=== PATIENT | female | born 1970 | race Caucasian/White ===

== ENCOUNTER 2016-07-07 16:41 | Emergency (ER) | payer OTHER ==
[2016-07-07] MEDS ORDERED: TYLENOL 325 MG PO ONE (17:15)
[2016-07-07] MEDS ORDERED: PROVENTIL 2.5 MG/3 ML NEB IH ONE ×2 (17:15→17:23)
[2016-07-07] MEDS ORDERED: TYLENOL 325 MG ONE (17:22)
--- NOTE | 2016-07-07 17:22 | ERPHSYRPT ---
- History of Present Illness Time Seen by Provider: 07/07/16 17:02 Source: patient, family Patient Subjective Stated Complaint: pt co cough, fever,yellow drianiage from nose, wheezing,earache Triage Nursing Assessment: pt alert and in no distress, resp easy, walked in, skin w/d. has stuffy nose and dry cough Physician History: CC: cough Hx: 45 y/o patient on disabililty for COPD. She sees Dr Barriga. She has 2 day hx of fever, chills, cough, sore throat, congestion, aches, myalgias. She has been using nebs. Symptoms moderate. Timing/Duration: day(s) (2) Allergies/Adverse Reactions: atropine sulfate [From ] Allergy (Verified 07/07/16 17:08) hyoscyamine sulfate [From ] Allergy (Verified 07/07/16 17:08) phenobarbital [From ] Allergy (Verified 07/07/16 17:08) scopolamine hydrobromide [From ] Allergy (Verified 07/07/16 17:08) shellfish derived Allergy (Verified 07/07/16 17:08) sulfamethoxazole [From Bactrim] Allergy (Verified 07/07/16 17:08) sumatriptan [From Imitrex] Allergy (Verified 07/07/16 17:08) sumatriptan succinate [From Imitrex] Allergy (Verified 07/07/16 17:08) trimethoprim [From Bactrim] Allergy (Verified 07/07/16 17:08) Home Medications: Albuterol 2.5 mg/0.5 ml [PROVENTIL Solution 2.5 MG/0.5 ML] 2.5 mg IH .PRN 06/11/16 [History] Albuterol 8 gm Mdi Hfa [Ventolin Hfa MDI] 0 gm IH .PRN 06/11/16 [History] Fluticasone/Salmeterol [Advair 250-50 Diskus] 1 each IH BID 06/11/16 [History] Ranitidine HCl [Zantac] 300 mg PO DAILY 06/11/16 [History] Ropinirole HCl [Requip] 1 mg PO HS 06/11/16 [History] Tiotropium [place] Inhaler [Spiriva 18 Mcg/Cap Inhaler] 1 ea IH DAILY 04/17 [History] Hx Influenza Vaccination/Date Given: Yes Hx Pneumococcal Vaccination/Date Given: Yes Immunizations Up to Date: Yes - Review of Systems Constitutional: Fever, Chills, Malaise Eyes: No Symptoms Ears, Nose, & Throat: Nose Congestion, Throat Pain Respiratory: Cough, Wheezing Abdominal/Gastrointestinal: Vomiting (dry heave with cough), No Diarrhea Genitourinary Symptoms: No Dysuria Skin: No Rash All Other Systems: Reviewed and Negative - Past Medical History Pertinent Past Medical History: Yes Neurological History: Migraines, Other ENT History: No Pertinent History Cardiac History: High Cholesterol, Other Respiratory History: Asthma, COPD Endocrine Medical History: No Pertinent History Musculoskeletal History: Degenerative Disk Disease, Osteoporosis, Other History: Other Psycho-Social History: Bipolar, Depression Female Reproductive Disorders: Other Other Medical History: , shingles 01/2016, neurosyncope, hysterectomy - Past Surgical History Past Surgical History: Yes Neuro Surgical History: Other Cardiac: No Pertinent History Respiratory: No Pertinent History Gastrointestinal: No Pertinent History Genitourinary: Other Musculoskeletal: Other Female Surgical History: Hysterectomy, Tubal Ligation Other Surgical History: 2 NOSE SURG,KNEE SURG, back stimulator, bladder stimulator for neurogenic bladder and removal of both - Social History Smoking Status: Former smoker How long have you smoked: 29 years Exposure to second hand smoke: Yes Drug Use: none Patient Lives Alone: No - Female History Hx Last Menstrual Period: hyster - Nursing Vital Signs Nursing Vital Signs: Initial Vital Signs Temperature 99.4 F Temperature Source Oral Pulse Rate 103 Respiratory Rate 16 Blood Pressure [Left Arm] 118/79 Pain Intensity 8 - Physical Exam General Appearance: alert Eye Exam: PERRL/EOMI Ears, Nose, Throat Exam: normal ENT inspection, dry mucous membranes Neck Exam: normal inspection, supple Respiratory Exam: wheezing (scattered), No respiratory distress Cardiovascular Exam: regular rate/rhythm, No murmur Gastrointestinal/Abdomen Exam: soft, No tenderness, No distention Back Exam: normal inspection Extremity Exam: normal inspection, normal range of motion, No calf tenderness, No pedal edema Neurologic Exam: alert, oriented x 3, cooperative, sensation nml, No motor deficits Skin Exam: warm, dry, No rash SpO2 Interpretation: normal SpO2: 99 Oxygen Delivery: Room Air - Course Nursing assessment & vital signs reviewed: Yes Ordered Tests: Active Orders 24 hr Category Date Time Status Accucheck STAT Care 07/07/16 17:15 Active PO Popsicle STAT Care 07/07/16 17:16 Active Respiratory Nebulizer STAT RT 07/07/16 17:15 Active - Progress Progress Note: 07/07/16 17:19 This is viral syndrome, likely influenza, with COPD exacerbation. Will treat with nebs, prednisone, doxy, and tussionex. Counseled pt/family regarding: diagnosis, need for follow-up - Departure Time of Disposition: 17:19 Departure Disposition: Home Clinical Impression: COPD exacerbation, flu like syndrome Condition: Stable Critical Care Time: No Referrals: BARON BARRIGA [Primary Care Provider] - Instructions: Chronic Obstructive Pulmonary Disease, Influenza -- Adult Additional Instructions: UPPER RESPIRATORY INFECTIONS 1. The signs and symptoms of a cold may last up to 10 days. These illnesses are due to viruses which are not treatable with antibiotics. 2. The following suggestions can aid in recovery and to minimize symptoms: A. Increase fluid intake. B. Acetaminophen or Ibuprofen as directed. C. Avoid smoking environments as this will increase the risk of developing pneumonia. D. For children, may use a cool mist vaporizer in the child's room. 3. Contact your Family Physician if you note: A. Persisten fever >103 for more than 3 days B. Breathing difficulty C. Productive cough of yellow/green sputum D. Illness greater than 7 days E. Persistent vomiting F. Stiff neck Rx prednisone. Rx doxycycline. Use your nebs as already prescribed. Follow up with Dr Barriga this week. Push oral fluids. Return for problems or concerns. Prescriptions: Doxycycline Hyclate 100 mg [Vibramycin 100 MG] 1 tab PO BID #20 tab Hydrocod Psx/Chlor-Jesus [Tussionex Pennkinetic Susp] 5 ml PO BID PRN #50 ml Prednisone 20 mg [Deltasone 20 mg] 2 tab PO DAILY #10 tablet
[2016-07-07 18:00] VITALS: BP 122/73; PULSE 100; O2SAT 97
== END 2016-07-07 17:59 | disposition home or self-care (01) ==
LOC: ED 16:41
DX: J44.1 Chronic obstructive pulmonary disease with (acute) exacerbation (principal); J11.1 Influenza due to unidentified influenza virus with other respiratory manifestations
CPT/HCPCS: 82962; 94640; 99283; 99284

== ENCOUNTER 2017-01-21 17:40 | Emergency (ER) | payer OTHER ==
[2017-01-21] MEDS ORDERED: DUONEB 0.5-3 MG/3 ml Neb IH ONE ×2 (17:55→18:26)
[2017-01-21] MEDS ORDERED: DELTASONE 20 MG PO ONE (17:56)
--- NOTE | 2017-01-21 17:59 | ERPHSYRPT ---
- History of Present Illness Time Seen by Provider: 01/21/17 17:57 Source: patient Exam Limitations: no limitations Patient Subjective Stated Complaint: PT REPORTS BEING DX WITH STREP THROAT YESTERDAY-REPORTS STARTING ANTIBIOTIC YESTERDAY MORNING-STATES THAT SHE THEN BEGAN HAVING DIARRHEA LAST NIGHT-STATES SHE IS UNABLE TO EAT OR DRINK WITHOUT PAIN-STATES SHE HURTS ALL OVER-HURTS WITH DEEP BREATHING-HAS AN MARISSA WITH DR Kirit SOSA TOMORROW MORNING ET THAT HE WANTED A CHEST X-RAY BUT DID NOT CALL THE ORDER IN Triage Nursing Assessment: PT PALE WARM ET DRY-WHEEZES NOTED-RESP NONLABORED- SPEAKING IN COMPLETE SENTECES-SLIGHT HOARSENESS NOTED-REDNESS NOTED TO THROAT Physician History: 46 y/o female with history of COPD comes to the ER with complaints of weakness, shortness of breath, cough, wheezing and chest pressure that started yesterday. Pt also admits to subjective fever and chills. Pt was just started on PCN for strep throat. Timing/Duration: yesterday Cough Quality/Degree: moderate Possible Cause: occasional episodes Modifying Factors: Improves With: albuterol inhaler Associated Symptoms: fever, chills, cough Allergies/Adverse Reactions: atropine sulfate [From ] Allergy (Verified 01/21/17 17:53) hyoscyamine sulfate [From ] Allergy (Verified 01/21/17 17:53) phenobarbital [From ] Allergy (Verified 01/21/17 17:53) scopolamine hydrobromide [From ] Allergy (Verified 01/21/17 17:53) shellfish derived Allergy (Verified 01/21/17 17:53) sulfamethoxazole [From Bactrim] Allergy (Verified 01/21/17 17:53) sumatriptan [From Imitrex] Allergy (Verified 01/21/17 17:53) sumatriptan succinate [From Imitrex] Allergy (Verified 01/21/17 17:53) trimethoprim [From Bactrim] Allergy (Verified 01/21/17 17:53) Home Medications: Albuterol 2.5 mg/0.5 ml [PROVENTIL Solution 2.5 MG/0.5 ML] 2.5 mg IH .PRN 06/11/16 [History] Albuterol 8 gm Mdi Hfa [Ventolin Hfa MDI] 0 gm IH .PRN 06/11/16 [History] Ranitidine HCl [Zantac] 300 mg PO DAILY 06/11/16 [History] Ropinirole HCl [Requip] 1 mg PO HS 06/11/16 [History] Tiotropium [place] Inhaler [Spiriva 18 Mcg/Cap Inhaler] 1 ea IH DAILY 04/17 [History] Venlafaxine HCl [Effexor] 150 mg PO DAILY 01/21/17 [History] Hx Tetanus, Diphtheria Vaccination/Date Given: No Hx Influenza Vaccination/Date Given: Yes Hx Pneumococcal Vaccination/Date Given: Yes Immunizations Up to Date: Yes - Review of Systems Constitutional: No Fever, No Chills Eyes: No Symptoms Ears, Nose, & Throat: No Symptoms, Throat Pain Respiratory: Cough, Dyspnea, Dyspnea on Exertion (CONDE), Wheezing Cardiac: No Chest Pain, No Edema, No Syncope Abdominal/Gastrointestinal: No Abdominal Pain, No Nausea, No Vomiting, No Diarrhea Genitourinary Symptoms: No Dysuria Musculoskeletal: No Back Pain, No Neck Pain Skin: No Rash Neurological: No Dizziness, No Focal Weakness, No Sensory Changes Psychological: No Symptoms Endocrine: No Symptoms All Other Systems: Reviewed and Negative - Past Medical History Pertinent Past Medical History: Yes Neurological History: Migraines, Other ENT History: No Pertinent History Cardiac History: High Cholesterol, Other Respiratory History: Asthma, COPD Endocrine Medical History: No Pertinent History Musculoskeletal History: Degenerative Disk Disease, Osteoporosis, Other History: Other Psycho-Social History: Bipolar, Depression Female Reproductive Disorders: Other Other Medical History: , shingles 01/2016, neurosyncope, hysterectomy - Past Surgical History Past Surgical History: Yes Neuro Surgical History: Other Cardiac: No Pertinent History Respiratory: No Pertinent History Gastrointestinal: No Pertinent History Genitourinary: Other Musculoskeletal: Other Female Surgical History: Hysterectomy, Tubal Ligation Other Surgical History: 2 NOSE SURG,KNEE SURG, back stimulator, bladder stimulator for neurogenic bladder and removal of both - Social History Smoking Status: Former smoker How long have you smoked: 29 years Exposure to second hand smoke: Yes Drug Use: none Patient Lives Alone: No - Nursing Vital Signs Nursing Vital Signs: Initial Vital Signs Temperature 98.1 F 01/21/17 17:47 Pulse Rate 90 01/21/17 17:47 Respiratory Rate 20 01/21/17 17:47 Blood Pressure 144/85 01/21/17 17:47 O2 Sat by Pulse Oximetry 98 01/21/17 17:47 Pain Scale Pain Intensity 10 - Physical Exam General Appearance: no apparent distress, alert Eye Exam: PERRL/EOMI, eyes nml inspection Ears, Nose, Throat Exam: TMs normal, pharynx normal, moist mucous membranes, pharyngeal erythema Neck Exam: normal inspection, non-tender, supple, full range of motion Respiratory Exam: normal breath sounds, wheezing, No respiratory distress Cardiovascular Exam: regular rate/rhythm, normal heart sounds Gastrointestinal/Abdomen Exam: soft, No tenderness Back Exam: normal inspection, No CVA tenderness, No vertebral tenderness Extremity Exam: normal inspection, normal range of motion Neurologic Exam: alert, oriented x 3, cooperative, normal mood/affect, sensation nml, No motor deficits Skin Exam: normal color, warm, dry, No rash Lymphatic Exam: No adenopathy SpO2: 98 Oxygen Delivery: Room Air - Course Nursing assessment & vital signs reviewed: Yes Ordered Tests: Active Orders 24 hr Category Date Time Status CHEST 2 VIEWS (PA AND LAT) Stat Exams 01/21/17 17:55 Taken BLOOD CULTURE Stat Lab 01/21/17 18:17 Received CBC W DIFF Stat Lab 01/21/17 18:05 Completed CMP Stat Lab 01/21/17 18:05 Completed Respiratory Nebulizer STAT RT 01/21/17 17:56 Completed Medication Summary Discontinued Medications Generic Name Dose Route Start Last Admin Trade Name Freq PRN Reason Stop Dose Admin Albuterol/Ipratropium 3 ml 01/21/17 17:55 01/21/17 18:27 Duoneb 0.5-3 Mg/3 Ml Neb IH 01/21/17 17:56 3 ml STAT ONE Administration Albuterol/Ipratropium Confirm 01/21/17 18:26 Duoneb 0.5-3 Mg/3 Ml Neb Administered 01/21/17 18:27 Dose 3 ml IH .STK-MED ONE Prednisone 40 mg 01/21/17 17:56 01/21/17 18:06 Deltasone 20 Mg PO 01/21/17 17:57 40 mg STAT ONE Administration Prednisone Confirm 01/21/17 18:05 Deltasone 20 Mg Administered 01/21/17 18:06 Dose 40 mg .ROUTE .STK-MED ONE Lab/Rad Data: Laboratory Result Diagrams 01/21/17 18:05 01/21/17 18:05 Laboratory Results 01/21/17 01/21/17 Range/Units 18:05 18:05 WBC 11.5 H (4.0-10.5) K/mm3 RBC 4.65 (4.1-5.4) M/mm3 Hgb 14.5 (12.0-16.0) gm/dl Hct 44.1 (35-47) % MCV 94.8 (78-100) fl MCH 31.2 (26-32) pg MCHC 32.9 (32-36) g/dl RDW 13.4 (11.5-14.0) % Plt Count 219 (150-450) K/mm3 MPV 12.8 H (6-9.5) fl Gran % 66.9 H (36.0-66.0) % Lymphocytes % 23.4 L (24.0-44.0) % Monocytes % 8.0 (0.0-12.0) % Eosinophils % 1.5 (0.00-5.0) % Basophils % 0.2 (0.0-0.4) % Basophils # 0.02 (0-0.4) Sodium 140 (136-145) mEq/L Potassium 4.0 (3.5-5.1) mEq/L Chloride 103 (98-107) mEq/L Carbon Dioxide 21.0 (21-32) mEq/L Anion Gap 20.2 H (5-15) MEQ/L BUN 11 (9-20) mg/dL Creatinine 1.08 (0.55-1.30) mg/dl Estimated GFR 58 ML/MIN Glucose 93 (70-110) MG/DL Calcium 9.5 (8.5-10.1) mg/dL Total Bilirubin 0.40 (0.2-1.0) mg/dL AST 14 L (15-37) U/L ALT 43 (12-78) U/L Alkaline Phosphatase 158 H (46-116) U/L Serum Total Protein 7.9 (6.4-8.2) gm/dL Albumin 3.6 (3.4-5.0) g/dL - Progress Progress: improved Air Movement: good Progress Note: 01/21/17 18:57 Pt feels better after receiving duoneb and prednisone. The CXR is normal. The rest of the labs are also normal. Pt will be d/c home on azithromycin and prednisone for bronchitis and COPD - Departure Time of Disposition: 18:58 Departure Disposition: Home Clinical Impression: COPD exacerbation, Bronchitis Condition: Stable Critical Care Time: No Referrals: BARON BARRIGA [Primary Care Provider] - Instructions: Chronic Obstructive Pulmonary Disease, Strep Throat, Bronchitis Additional Instructions: Return to the ER if you should have worsening shortness of breath, cough, fever or chills. Prescriptions: Azithromycin 250 mg [Zithromax 250 MG TABLET] 250 mg PO ZPACK #6 tablet Prednisone 20 mg [Deltasone 20 mg] 20 mg PO DAILY #5 tablet
[2017-01-21] MEDS ORDERED: DELTASONE 20 MG ONE (18:05)
[2017-01-21 18:22] LABS: BASOPHIL % 0.2 % (0.0-0.4); Eosinophil % 1.5 % (0.00-5.0); Granulocytes % 66.9 % (36.0-66.0); Lymphocytes % 23.4 % (24.0-44.0); Mean Cell Volume 94.8 fl (78-100); Mean Corpuscular Hemoglobin 31.2 pg (26-32); Mean Platelet Volume 12.8 fl (6-9.5); Platelet Count 219 K/mm3 (150-450); Red Blood Count 4.65 M/mm3 (4.1-5.4); Red Cell Distribution Width 13.4 % (11.5-14.0); White Blood Count 11.5 K/mm3 (4.0-10.5)
[2017-01-21 18:42] LABS: ALBUMIN 3.6 g/dL (3.4-5.0); ANION GAP 20.2 MEQ/L (5-15); BILIRUBIN,TOTAL 0.4 mg/dL (0.2-1.0); Total Protein 7.9 gm/dL (6.4-8.2)
[2017-01-21 18:57] VITALS: BP 100/72; PULSE 98
[2017-01-21 19:00] VITALS: O2SAT 98
--- NOTE | 2017-01-22 08:55 | XRAY ---
Indication: Short of breath and fatigue. Comparison: August 12, 2016. PA/lateral chest again demonstrates normal heart and lungs. Bony thorax intact.
== END 2017-01-21 19:05 | disposition home or self-care (01) ==
LOC: ED 17:40
DX: J44.1 Chronic obstructive pulmonary disease with (acute) exacerbation (principal); J40 Bronchitis, not specified as acute or chronic
CPT/HCPCS: 36415; 71020; 80053; 85025; 87040; 94640; 99283; 99284; A9270-GY; J7506

== ENCOUNTER 2017-02-17 21:53 | Observation (INO) | payer OTHER ==
[2017-02-17] MEDS ORDERED: Hydromorphone 1 mg/ml Ampule IV ONE (23:31)
[2017-02-17] MEDS ORDERED: Sodium Chloride 0.9% 1000 ML 1,000 ML IV STA (23:31)
[2017-02-17] MEDS ORDERED: Phenergan 25 MG INJ IV ONE (23:31)
--- NOTE | 2017-02-17 23:34 | ERPHSYRPT ---
- History of Present Illness Time Seen by Provider: 02/17/17 23:27 Historian: patient Exam Limitations: no limitations Patient Subjective Stated Complaint: [facility] where she was treated for colitis and lung infection she has just finished flagyl,ciproc penvk and another med -she has cont to have left lower abd pain but it is worse tonight -she also just finished medrol -she vomited 1 time tonight and had 4 diarrhea stools -she has a back stimulator for chronic back curtis -the pain is worse with her cough Triage Nursing Assessment: pt is awake and alert and albe to answer questions - she holds her left abd with her hard cough Physician History: SINCE 01/30/17 PT HAS HAD CONSTANT LLQ ABDOMINAL PAIN, NAUSEA, DIAPHORESIS AND A LEFT EARACHE. PT WAS HOSPITALIZED AT [facility] FROM 01/30/17 - 02/02/17 FOR COLITIS AND TREATED WITH FLAGYL AND LEVAQUIN. PT STARTED A MEDROL DOSE PACK ON 02/05/17. THE LLQ ABDOMINAL PAIN HAS WORSENED IN THE PAST 2 DAYS AND TODAY PT HAD DIARRHEA X4 WITHOUT BLOOD. PT DENIES CHEST PAIN, SHORTNESS OF AIR, RASH. Allergies/Adverse Reactions: atropine sulfate [From ] Allergy (Verified 01/21/17 17:53) hyoscyamine sulfate [From ] Allergy (Verified 01/21/17 17:53) phenobarbital [From ] Allergy (Verified 01/21/17 17:53) scopolamine hydrobromide [From ] Allergy (Verified 01/21/17 17:53) shellfish derived Allergy (Verified 01/21/17 17:53) sulfamethoxazole [From Bactrim] Allergy (Verified 01/21/17 17:53) sumatriptan [From Imitrex] Allergy (Verified 01/21/17 17:53) sumatriptan succinate [From Imitrex] Allergy (Verified 01/21/17 17:53) trimethoprim [From Bactrim] Allergy (Verified 01/21/17 17:53) Home Medications: Albuterol 2.5 mg/0.5 ml [PROVENTIL Solution 2.5 MG/0.5 ML] 2.5 mg IH .PRN 06/11/16 [History] Albuterol 8 gm Mdi Hfa [Ventolin Hfa MDI] 0 gm IH .PRN 06/11/16 [History] Ranitidine HCl [Zantac] 300 mg PO DAILY 06/11/16 [History] Ropinirole HCl [Requip] 1 mg PO HS 06/11/16 [History] Tiotropium [place] Inhaler [Spiriva 18 Mcg/Cap Inhaler] 1 ea IH DAILY 04/17 [History] Venlafaxine HCl [Effexor] 150 mg PO DAILY 01/21/17 [History] Hx Tetanus, Diphtheria Vaccination/Date Given: Yes Hx Influenza Vaccination/Date Given: No Hx Pneumococcal Vaccination/Date Given: No Immunizations Up to Date: No - Review of Systems Ears, Nose, & Throat: Ear Pain (LEFT) Abdominal/Gastrointestinal: Abdominal Pain, Nausea, Diarrhea Endocrine: Excessive Sweating All Other Systems: Reviewed and Negative - Past Medical History Pertinent Past Medical History: Yes Neurological History: Migraines, Other ENT History: No Pertinent History Cardiac History: High Cholesterol, Other Respiratory History: Asthma, COPD Endocrine Medical History: No Pertinent History Musculoskeletal History: Degenerative Disk Disease, Osteoporosis, Other History: Other Psycho-Social History: Bipolar, Depression Female Reproductive Disorders: Other Other Medical History: , shingles 01/2016, neurosyncope, hysterectomy - Past Surgical History Past Surgical History: Yes Neuro Surgical History: Other Cardiac: No Pertinent History Respiratory: No Pertinent History Gastrointestinal: No Pertinent History Genitourinary: Other Musculoskeletal: Other Female Surgical History: Hysterectomy, Tubal Ligation Other Surgical History: 2 NOSE SURG,KNEE SURG, back stimulator, bladder stimulator for neurogenic bladder and removal of both - Social History Smoking Status: Current every day smoker How long have you smoked: 29 years Exposure to second hand smoke: Yes Drug Use: none Patient Lives Alone: No - Nursing Vital Signs Nursing Vital Signs: Initial Vital Signs Temperature 98.5 F 02/17/17 22:35 Pulse Rate 100 H 02/17/17 22:35 Respiratory Rate 20 02/17/17 22:35 Blood Pressure 124/93 02/17/17 22:35 O2 Sat by Pulse Oximetry 98 02/17/17 22:35 Pain Scale Pain Intensity 7 - Physical Exam General Appearance: alert Eye Exam: PERRL/EOMI Ears, Nose, Throat Exam: pharynx normal, moist mucous membranes Neck Exam: normal inspection Respiratory Exam: lungs clear Cardiovascular Exam: normal heart sounds Gastrointestinal/Abdomen Exam: soft, tenderness (MILD LLQ ABDOMINAL TENDERNESS) , other (B.S. MILDLY HYPERACTIVE AND NORMOTONIC), No guarding Back Exam: normal range of motion Extremity Exam: normal inspection, No pedal edema Neurologic Exam: alert, cooperative Skin Exam: warm, dry SpO2 Interpretation: normal SpO2: 98 Oxygen Delivery: Room Air - Course Nursing assessment & vital signs reviewed: Yes - CT Exams Abdomen/Pelvis CT Interpretation: Tele-radiologist Report (COLONIC DIVERTICULOSIS WITHOUT EVIDENCE OF DIVERTICULITIS. FAT CONTAINING UMBILICAL HERNIA. THERE IS DIFFUSE MILD WALL THICKENING OF THE COLON. COLON IS RELATIVELY DECOMPRESSED, BUT CLINICAL CORRELATION FOR EVIDENCE OF COLITIS IS RECOMMENDED. NO EVIDENCE OF OBSTRUCTION, PERFORATION OR ABSCESS.) Ordered Tests: Active Orders 24 hr Category Date Time Status Clean Catch Urine Specimen STAT Care 02/17/17 22:36 Active IV Insertion STAT Care 02/17/17 22:36 Active ABDOMEN AND PELVIS W/0 CONTRAS [CT] Stat Exams 02/17/17 23:32 Taken AMYLASE Stat Lab 02/17/17 23:00 Completed BLOOD CULTURE Stat Lab 02/18/17 23:00 Received CBC W DIFF Stat Lab 02/17/17 23:00 Completed CMP Stat Lab 02/17/17 23:00 Completed HCG QUALITATIVE,SERUM Stat Lab 02/17/17 23:00 Completed LIPASE Stat Lab 02/17/17 23:00 Completed MAG [MAGNESIUM] Stat Lab 02/17/17 23:00 Completed UA W/RFX UR CULTURE Stat Lab 02/17/17 23:00 Completed Medication Summary Generic Name Dose Route Start Last Admin Trade Name Freq PRN Reason Stop Dose Admin Levofloxacin/Dextrose 500 mg in 100 mls @ 100 mls/hr 02/18/17 00:28 Levofloxacin 500mg/100ml D5w IV 02/18/17 01:27 STAT STA Discontinued Medications Generic Name Dose Route Start Last Admin Trade Name Freq PRN Reason Stop Dose Admin Hydromorphone HCl 1 mg 02/17/17 23:31 02/17/17 23:39 Hydromorphone 1 Mg/Ml Ampule IV 02/17/17 23:32 1 mg STAT ONE Administration Hydromorphone HCl Confirm 02/17/17 23:35 Hydromorphone 1 Mg/Ml Ampule Administered 02/17/17 23:36 Dose 1 mg .ROUTE .STK-MED ONE Hydromorphone HCl 1 mg 02/18/17 00:29 02/18/17 00:58 Hydromorphone 1 Mg/Ml Ampule IV 02/18/17 00:30 1 mg STAT ONE Administration Hydromorphone HCl Confirm 02/18/17 00:53 Hydromorphone 1 Mg/Ml Ampule Administered 02/18/17 00:54 Dose 1 mg .ROUTE .STK-MED ONE Sodium Chloride 1,000 mls @ 999 mls/hr 02/17/17 23:31 02/17/17 23:39 Sodium Chloride 0.9% 1000 Ml IV 02/18/17 00:31 999 mls/hr .Q1H1M STA Administration Sodium Chloride Confirm 02/17/17 23:35 Sodium Chloride 0.9% 1000 Ml Administered 02/17/17 23:36 Dose 1,000 mls @ ud .ROUTE .STK-MED ONE Metronidazole 500 mg in 100 mls @ 200 mls/hr 02/18/17 00:28 02/18/17 00:59 Flagyl 500 Mg Ivpb IV 02/18/17 00:57 200 mls/hr STAT STA Administration Metronidazole Confirm 02/18/17 00:53 Flagyl 500 Mg Ivpb Administered 02/18/17 00:54 Dose 500 mg in 100 mls @ ud IV .STK-MED ONE Promethazine HCl 12.5 mg 02/17/17 23:31 02/17/17 23:39 Phenergan 25 Mg Inj IV 02/17/17 23:32 12.5 mg STAT ONE Administration Promethazine HCl Confirm 02/17/17 23:35 Phenergan 25 Mg Inj Administered 02/17/17 23:36 Dose 25 mg .ROUTE .STK-MED ONE Lab/Rad Data: Laboratory Result Diagrams 02/17/17 23:00 02/17/17 23:00 Laboratory Results 02/17/17 02/17/17 02/17/17 Range/Units 23:00 23:00 23:00 WBC (4.0-10.5) K/mm3 RBC (4.1-5.4) M/mm3 Hgb (12.0-16.0) gm/dl Hct (35-47) % MCV (78-100) fl MCH (26-32) pg MCHC (32-36) g/dl RDW (11.5-14.0) % Plt Count (150-450) K/mm3 MPV (6-9.5) fl Gran % (36.0-66.0) % Lymphocytes % (24.0-44.0) % Monocytes % (0.0-12.0) % Eosinophils % (0.00-5.0) % Basophils % (0.0-0.4) % Basophils # (0-0.4) Sodium 142 (136-145) mEq/L Potassium 3.7 (3.5-5.1) mEq/L Chloride 107 (98-107) mEq/L Carbon Dioxide 23.3 (21-32) mEq/L Anion Gap 15.6 H (5-15) MEQ/L BUN 13 (9-20) mg/dL Creatinine 1.10 (0.55-1.30) mg/dl Estimated GFR 57 ML/MIN Glucose 100 (70-110) MG/DL Calcium 8.8 (8.5-10.1) mg/dL Magnesium 1.8 (1.8-2.4) mg/dL Total Bilirubin 0.20 (0.2-1.0) mg/dL AST 27 (15-37) U/L ALT 40 (12-78) U/L Alkaline Phosphatase 131 H (46-116) U/L Serum Total Protein 7.2 (6.4-8.2) gm/dL Albumin 3.4 (3.4-5.0) g/dL Amylase 82 (25-115) U/L Lipase 352 (73-393) U/L Serum , Qual NEGATIVE (Negative) Ur Collection Type Urine Color (YELLOW) Urine Appearance (CLEAR) Urine pH (5-6) Ur Specific [place] (1.005-1.025) Urine Protein (Negative) Urine Ketones (NEGATIVE) Urine Blood (0-5) Ricardo/ul Urine Nitrite (NEGATIVE) Urine Bilirubin (NEGATIVE) Urine Urobilinogen (0-1) mg/dL Ur Leukocyte Esterase (NEGATIVE) Urine Glucose (NEGATIVE) mg/dL Specimen Received 02/17/17 02/17/17 Range/Units 23:00 23:00 WBC 8.4 (4.0-10.5) K/mm3 RBC 4.23 (4.1-5.4) M/mm3 Hgb 13.2 (12.0-16.0) gm/dl Hct 40.3 (35-47) % MCV 95.3 (78-100) fl MCH 31.2 (26-32) pg MCHC 32.8 (32-36) g/dl RDW 14.4 H (11.5-14.0) % Plt Count 329 (150-450) K/mm3 MPV 10.6 H (6-9.5) fl Gran % 33.6 L (36.0-66.0) % Lymphocytes % 54.9 H (24.0-44.0) % Monocytes % 8.7 (0.0-12.0) % Eosinophils % 2.6 (0.00-5.0) % Basophils % 0.2 (0.0-0.4) % Basophils # 0.02 (0-0.4) Sodium (136-145) mEq/L Potassium (3.5-5.1) mEq/L Chloride (98-107) mEq/L Carbon Dioxide (21-32) mEq/L Anion Gap (5-15) MEQ/L BUN (9-20) mg/dL Creatinine (0.55-1.30) mg/dl Estimated GFR ML/MIN Glucose (70-110) MG/DL Calcium (8.5-10.1) mg/dL Magnesium (1.8-2.4) mg/dL Total Bilirubin (0.2-1.0) mg/dL AST (15-37) U/L ALT (12-78) U/L Alkaline Phosphatase (46-116) U/L Serum Total Protein (6.4-8.2) gm/dL Albumin (3.4-5.0) g/dL Amylase (25-115) U/L Lipase (73-393) U/L Serum , Qual (Negative) Ur Collection Type CLEAN CATCH Urine Color YELLOW (YELLOW) Urine Appearance CLEAR (CLEAR) Urine pH 5.0 (5-6) Ur Specific [place] 1.020 (1.005-1.025) Urine Protein NEGATIVE (Negative) Urine Ketones NEGATIVE (NEGATIVE) Urine Blood NEGATIVE (0-5) Ricardo/ul Urine Nitrite NEGATIVE (NEGATIVE) Urine Bilirubin NEGATIVE (NEGATIVE) Urine Urobilinogen NORMAL (0-1) mg/dL Ur Leukocyte Esterase NEGATIVE (NEGATIVE) Urine Glucose NEGATIVE (NEGATIVE) mg/dL Specimen Received 02/17/17:2300 - Progress Discussed with : Zackary (OBS - [id number]) - Departure Time of Disposition: 01:23 Departure Disposition: Observation Clinical Impression: COLITIS, COPD, ASTHMA, MIGRAINES, BIPOLAR DISORDER Condition: Stable Critical Care Time: No Referrals: BARON BARRIGA [Primary Care Provider] -
[2017-02-17] MEDS ORDERED: Phenergan 25 MG INJ ONE (23:35)
[2017-02-17] MEDS ORDERED: Sodium Chloride 0.9% 1000 ML 1,000 ML ONE (23:35)
[2017-02-17] MEDS ORDERED: Hydromorphone 1 mg/ml Ampule ONE (23:35)
[2017-02-17 23:37] LABS: BASOPHIL % 0.2 % (0.0-0.4); Eosinophil % 2.6 % (0.00-5.0); Granulocytes % 33.6 % (36.0-66.0); Lymphocytes % 54.9 % (24.0-44.0); Mean Cell Volume 95.3 fl (78-100); Mean Corpuscular Hemoglobin 31.2 pg (26-32); Mean Platelet Volume 10.6 fl (6-9.5); Monocytes % 8.7 % (0.0-12.0); Platelet Count 329 K/mm3 (150-450); Red Blood Count 4.23 M/mm3 (4.1-5.4); Red Cell Distribution Width 14.4 % (11.5-14.0); White Blood Count 8.4 K/mm3 (4.0-10.5)
[2017-02-17 23:39] LABS: Collection Type CLEAN CATCH
[2017-02-17 23:40] LABS: ADD URINE CULTURE? NO (NO); Bilirubin NEGATIVE (NEGATIVE); Blood NEGATIVE Ery/ul (0-5); COMPLETE URINE MICROSCOPIC? NO; Glucose NEGATIVE (NEGATIVE); Leukocyte Esterase NEGATIVE (NEGATIVE)
[2017-02-17 23:46] LABS: ALBUMIN 3.4 g/dL (3.4-5.0); ANION GAP 15.6 MEQ/L (5-15); BILIRUBIN,TOTAL 0.2 mg/dL (0.2-1.0); Carbon Dioxide 23.3 mEq/L (21-32); Potassium 3.7 mEq/L (3.5-5.1); Total Protein 7.2 gm/dL (6.4-8.2)
[2017-02-18] MEDS ORDERED: Levofloxacin 500MG/100ML D5W 500 MG/100 ML BAG IV STA (00:28)
[2017-02-18] MEDS ORDERED: FLAGYL 500 MG IVPB 500 MG/100 ML BAG IV STA (00:28)
[2017-02-18] MEDS ORDERED: Hydromorphone 1 mg/ml Ampule IV ONE (00:29)
[2017-02-18] MEDS ORDERED: FLAGYL 500 MG IVPB 500 MG/100 ML BAG IV ONE (00:53)
[2017-02-18] MEDS ORDERED: Hydromorphone 1 mg/ml Ampule ONE (00:53)
[2017-02-18] MEDS ORDERED: Levofloxacin 500MG/100ML D5W 500 MG/100 ML BAG IV ONE (01:36)
[2017-02-18] MEDS ORDERED: Phenergan 25 MG INJ IV PRN (02:03)
[2017-02-18] MEDS ORDERED: PROVENTIL 2.5 MG/3 ML NEB IH PRN ×2 (02:03→05:02)
[2017-02-18] MEDS: Sodium Chloride 0.9% 1000 ML 1,000 ML IV SCH ×2 (02:37→14:34)
[2017-02-18] MEDS: DILAUDID 2 MG INJECTION IV PRN ×4 (05:46→21:07)
[2017-02-18 06:01] LABS: BASOPHIL % 0.2 % (0.0-0.4); Eosinophil % 3.7 % (0.00-5.0); Mean Cell Volume 96.7 fl (78-100); Mean Corpuscular Hemoglobin 30.9 pg (26-32); Mean Platelet Volume 10.4 fl (6-9.5); Monocytes % 11.1 % (0.0-12.0); Platelet Count 249 K/mm3 (150-450); Red Blood Count 3.62 M/mm3 (4.1-5.4); Red Cell Distribution Width 14.3 % (11.5-14.0); White Blood Count 6.2 K/mm3 (4.0-10.5)
[2017-02-18] MEDS: FLAGYL 500 MG IVPB 500 MG/100 ML BAG IV SCH ×3 (06:06→21:08)
[2017-02-18 06:20] LABS: ALBUMIN 2.5 g/dL (3.4-5.0); ALKALINE PHOSPHATASE 101 U/L (46-116); BLOOD UREA NITROGEN 10 mg/dL (9-20); CHLORIDE 111 mEq/L (98-107); Carbon Dioxide 23.9 mEq/L (21-32); Glucose 89 MG/DL (70-110); SGOT/AST 22 U/L (15-37); SGPT/ALT 33 U/L (12-78); SODIUM 143 mEq/L (136-145); Total Protein 5.7 gm/dL (6.4-8.2)
[2017-02-18] MEDS ORDERED: ADVAIR 250-50 DISKUS 14 DOSE IH SCH (07:00)
[2017-02-18] MEDS: Advair Hfa 115/21 Common canister IH SCH ×2 (08:11→20:04)
[2017-02-18] MEDS ORDERED: TYLENOL 325 MG PO PRN (08:22)
[2017-02-18] MEDS: Zofran 4 MG/2 ML VIAL IV PRN (09:06)
[2017-02-18] MEDS: PROTONIX 40 MG IV IV SCH (09:07)
[2017-02-18] MEDS: solu-MEDROL 125 MG IV SCH ×3 (09:07→21:07)
[2017-02-18] MEDS: Levofloxacin 500MG/100ML D5W 500 MG/100 ML BAG IV SCH (09:07)
--- NOTE | 2017-02-18 09:18 | XRAY ---
Indication: Left lower quadrant pain. Diarrhea, emesis, and colitis. Multiple contiguous axial images obtained through the abdomen and pelvis without contrast as ordered.. Comparison: None. Lung bases demonstrates minimal atelectasis/scarring. Heart is not enlarged. Noncontrasted stomach and bowel loops appear nonobstructed. Splenic flexure of the colon and descending colon demonstrates minimal pericolonic stranding favoring colitis. No free fluid/air. Normal appendix. Mild sigmoid diverticulosis. Previous hysterectomy. Remaining liver, gallbladder, pancreas, spleen, adrenal glands, kidneys, ureters, and bladder appear unremarkable for noncontrast exam. Mild aortoiliac calcifications without AAA. Osseous structures intact with minimal degenerative changes throughout the spine. Small fatty umbilical hernia. Impression: 1. Left hemicolon pericolonic stranding favoring colitis as clinically reported. 2. Sigmoid diverticulosis without diverticulitis. 3. Small umbilical fatty hernia. Comment: Preliminary interpretation was made by [facility]. No discrepancy. CTDI 15.39
[2017-02-18] MEDS ORDERED: NON-FORMULARY ITEM (Ranitidine Hcl [Zantac] 300 MG) PO PRN (09:30)
[2017-02-18] MEDS ORDERED: Tessalon Perles 100 MG PO PRN (09:30)
[2017-02-18] MEDS ORDERED: Pepcid 20 MG PO PRN (09:33)
[2017-02-18] MEDS ORDERED: NON-FORMULARY ITEM (Venlafaxine Hcl [Effexor] 150 MG) PO SCH (10:00)
[2017-02-18] MEDS ORDERED: NON-FORMULARY ITEM (Ropinirole Hcl [Requip] 1 MG) PO SCH (10:00)
[2017-02-18] MEDS: Effexor XR 75 MG PO SCH (10:15)
[2017-02-18] MEDS: Requip 0.5 MG PO SCH ×2 (10:15→21:08)
--- NOTE | 2017-02-18 13:54 | HP ---
HISTORY OF PRESENT ILLNESS: This is a 46 year-old patient of mine that I have not seen in approximately a year who presented to the emergency department complaining of worsening abdominal pain. She reports that she was diagnosed with irritable bowel syndrome years ago. She has not had a colonoscopy. She was recently at [facility] earlier this month and given antibiotics Levaquin and Flagyl to take which she finished. She also reports recently seeing Dr. Kaushik Stafford, [employer], and being told that she has bronchitis with Strep and she took penicillin after finishing antibiotics from [facility]. She reports at first she was constipated and took a laxative and then had abdominal pain and was able to have a stool and then started having diarrhea. At [facility], she reports they did a CT scan with contrast. At that time her white blood cell count was 30,000 and she was told her intestines were swollen. On 02/05/2017, she saw nurse practitioner, Danitza Caldwell, in the office for continued abdominal pain and was given Medrol Dosepak which she was taking. The patient was trying MiraLAX at home but felt full. She also reports she was taking Adger left over from [facility]. She was having a soft stool every 20 minutes for two days and then last night had diarrhea x4 with worsening abdominal pain. She denies any blood in her stool. She reports a low grade fever, sweats and some nausea. She also reports a 6 pound weight loss and some cough. REVIEW OF SYSTEMS: As noted in the history of present illness. PAST MEDICAL HISTORY: Irritable bowel syndrome. Chronic back pain. Chronic obstructive pulmonary disease. Migraines. Restless leg syndrome. PAST SURGICAL HISTORY: She has had knee surgery, two nose surgeries, partial hysterectomy, bilateral ovaries removed. Spinal and bladder stimulator put in and then removed. MEDICATIONS: Advair 50/250 one puff b.i.d., Effexor 150 mg p.o. daily, Phenergan 25 mg every four hours as needed, Albuterol 2.5 mg nebulized every four hours as needed, Requip 1 mg p.o. b.i.d., Tessalon Perles 100 mg p.o. t.i.d., Albuterol 2 puffs every four hours as needed, ranitidine 300 mg as needed. She also reported hydrocodone from [facility]. ALLERGIES: ATROPINE, HYOSCYAMINE, PHENOBARBITAL, SCOPOLAMINE, BACTRIM, IMITREX. SHELL FISH. SOCIAL HISTORY: She smokes a few cigarettes a day, denies any alcohol use. She lives with her ex-in-laws. FAMILY HISTORY: Her mother is living and has asthma. Father is and had depression and bronchitis. PHYSICAL EXAMINATION: VITAL SIGNS: Temperature current 98.0F, temperature max 98.5F, heart rate 84 to 100 currently 90, respiratory rate 16 to 20 currently 16, blood pressure 114 to 141 over 64 to 93. Oxygen saturation 96 to 98% on room air. GENERAL: The patient is a pleasant talkative lady lying in bed. When I asked her to take a deep breath she started coughing and then vomited some clear-looking fluid. She has scattered wheezes on chest exam. Equal breath sounds. She is able to talk in full sentences. CVS: Her heart has a regular rate and rhythm. No murmurs, gallops or rubs. ABDOMEN: Tender in the left lower quadrant. No guarding. No rigidity. EXTREMITIES: No clubbing, cyanosis or edema. SKIN: Warm, dry and intact. LABORATORY DATA AND TESTS: She had a CT scan of her abdomen and pelvis without contrast that was read as left hemicolon pericolonic stranding favoring colitis, sigmoid diverticulosis without diverticulitis and a fatty umbilical hernia. Please see the radiologist report for the full dictation. Labs: CBC within normal limits. CMP revealed alkaline phosphatase of 131. UA negative. ASSESSMENT AND PLAN: 1) COLITIS. She will continue with the levofloxacin and metronidazole and I will add Solu-Medrol. I discussed with her that at some point she most likely will need a colonoscopy for further evaluation. She currently has Dilaudid as needed for pain which she was asking to have increased and I have added Tylenol to try to help more with her pain. In the past our office has not been able to give her controlled medications because she failed a urine tox screen with pain management clinic here at [facility]. Will try to receive notes from [facility] from her recent hospitalization. 2) HISTORY OF CHRONIC OBSTRUCTIVE PULMONARY DISEASE: Will continue with her home medications, will try to get Dr. Kaushik Stafford's notes. 3) LOW BACK PAIN: Stable at this time. 4) RESTLESS LEG SYNDROME: Will continue with her home medications.
[2017-02-19] MEDS: DILAUDID 2 MG INJECTION IV PRN ×8 (01:32→22:45)
[2017-02-19] MEDS: Sodium Chloride 0.9% 1000 ML 1,000 ML IV SCH (02:43)
[2017-02-19] MEDS: solu-MEDROL 125 MG IV SCH ×3 (05:58→21:39)
[2017-02-19] MEDS: FLAGYL 500 MG IVPB 500 MG/100 ML BAG IV SCH ×3 (05:59→21:38)
[2017-02-19] MEDS: Advair Hfa 115/21 Common canister IH SCH ×2 (07:32→20:11)
--- NOTE | 2017-02-19 10:09 | PCM.NOTE ---
Date and Time: 02/19/17 1004 Subjective Assessment: Patient reports that her abdominal pain continues in her left side and now radiates to her right lower quadrant. She has been able to tolerate some clear liquids and vomited 3 times yesterday but not yet today. She reports her pain medication does not last long enough and seems to wear off at 3 hours. She has had one stool which was taken to the lab for analysis. I received records from Dr. Stafford but I can't find any records from her recent [facility] stay in her chart. - Review of Systems Constitutional: No Symptoms Eyes: No Symptoms Ears, Nose, & Throat: No Symptoms Respiratory: Cough Cardiac: No Symptoms Abdominal/Gastrointestinal: Abdominal Pain, Nausea, Vomiting, Diarrhea, No Constipation Genitourinary Symptoms: No Symptoms Musculoskeletal: No Symptoms Skin: No Symptoms Objective Exam General Appearance: no apparent distress, alert Neurologic Exam: alert, cooperative, normal mood/affect Skin Exam: normal color, warm, dry, No rash Respiratory Exam: normal breath sounds, lungs clear, No crackles/rales, No rhonchi, No wheezing Cardiovascular Exam: regular rate/rhythm, normal heart sounds, No murmur, No friction rub, No gallop Gastrointestinal/Abdomen Exam: soft, normal bowel sounds, tenderness, other ( mild tenderness right and left lower quadrant), No distention, No mass, No guarding Extremity Exam: normal inspection, other (no c/c/e) OBJECTIVE DATA Vital Signs: Vital Signs - 24 hr Temp Pulse Resp BP Pulse Ox 02/19/17 07:33 112 H 16 98 02/19/17 07:19 97.8 F 103 H 16 113/63 93 L 02/19/17 04:00 97.7 F 109 H 18 129/71 94 L 02/19/17 00:05 98.3 F 104 H 18 133/73 93 L 02/18/17 20:05 96 H 20 94 L 02/18/17 20:00 98.2 F 105 H 20 123/69 95 02/18/17 16:00 98.3 F 100 H 16 127/68 96 02/18/17 11:23 98.0 F 90 16 116/64 96 Pain Assessment - Last Documented Pain Intensity 8 Pain Scale Used 0-10 Pain Scale Intake and Output: Intake & Output 02/17/17 02/18/17 02/19/17 02/20/17 06:59 06:59 06:59 06:59 Intake Total 4737 900 Output Total 350 5000 1300 Balance -350 -779 -400 Weight 72.439 kg 73.567 kg Assessment/Plan (1) Colitis Current Visit: Yes Status: Acute Assessment & Plan: Continue current antibiotics and IV steroids. Try to advance diet to clear fluids. Will benefit from gastroenterology consult and probably colonoscopy as outpatient after discharge. Will decrease dose of IV pain medication but make more frequent. If nausea is completely resolved, may be able to switch to oral pain medication while here in the hospital. Code(s): K52.9 - NONINFECTIVE GASTROENTERITIS AND COLITIS, UNSPECIFIED (2) History of COPD Current Visit: Yes Status: Acute Assessment & Plan: Continue current home medications. Code(s): Z87.09 - PERSONAL HISTORY OF OTHER DISEASES OF THE RESPIRATORY SYSTEM (3) Low back pain Current Visit: Yes Status: Acute Code(s): M54.5 - LOW BACK PAIN (4) Restless leg syndrome Current Visit: Yes Status: Acute
[2017-02-19] MEDS: PROTONIX 40 MG IV IV SCH (10:13)
[2017-02-19] MEDS: Dextrose 5% -0.45 NaCl 1000 ML 1,000 ML IV SCH (10:13)
[2017-02-19] MEDS: Effexor XR 75 MG PO SCH (10:14)
[2017-02-19] MEDS: Requip 0.5 MG PO SCH ×2 (10:14→21:38)
[2017-02-19] MEDS: Levofloxacin 500MG/100ML D5W 500 MG/100 ML BAG IV SCH (10:14)
[2017-02-19 12:42] LABS: Giardia Antigen EIA Negative (Negative)
[2017-02-19] MEDS: Zofran 4 MG/2 ML VIAL IV PRN (22:46)
[2017-02-20] MEDS: DILAUDID 2 MG INJECTION IV PRN ×3 (01:37→06:25)
[2017-02-20] MEDS: Dextrose 5% -0.45 NaCl 1000 ML 1,000 ML IV SCH (05:19)
[2017-02-20] MEDS: solu-MEDROL 125 MG IV SCH (05:31)
[2017-02-20] MEDS: FLAGYL 500 MG IVPB 500 MG/100 ML BAG IV SCH (05:31)
[2017-02-20 06:03] LABS: BASOPHIL % 0.1 % (0.0-0.4); Granulocytes % 77.6 % (36.0-66.0); Lymphocytes % 15.3 % (24.0-44.0); Mean Cell Volume 96.8 fl (78-100); Mean Platelet Volume 10.5 fl (6-9.5); Platelet Count 285 K/mm3 (150-450); Red Blood Count 3.41 M/mm3 (4.1-5.4); Red Cell Distribution Width 14.2 % (11.5-14.0); White Blood Count 14.1 K/mm3 (4.0-10.5)
[2017-02-20 06:14] LABS: ANION GAP 12.4 MEQ/L (5-15); BLOOD UREA NITROGEN 3 mg/dL (9-20); CHLORIDE 111 mEq/L (98-107); Carbon Dioxide 25.7 mEq/L (21-32); Glucose 151 MG/DL (70-110); SODIUM 145 mEq/L (136-145)
[2017-02-20] MEDS: Advair Hfa 115/21 Common canister IH SCH (07:00)
[2017-02-20 07:05] VITALS: PULSE 89; O2SAT 95
[2017-02-20 07:33] VITALS: BP 128/77
[2017-02-20] MEDS ORDERED: NORCO 5/325 MG PO PRN (07:52)
[2017-02-20] MEDS: Effexor XR 75 MG PO SCH (08:33)
[2017-02-20] MEDS: PROTONIX 40 MG IV IV SCH (08:33)
[2017-02-20] MEDS: Requip 0.5 MG PO SCH (08:33)
[2017-02-20] MEDS: Levofloxacin 500MG/100ML D5W 500 MG/100 ML BAG IV SCH (09:50)
--- NOTE | 2017-02-20 10:17 | PCM.DCORD ---
- Discharge Discharge Date: 02/20/17 Disposition: Home, Self-Care Condition: Fair Prescriptions: New Prednisone 20 mg [Deltasone 20 mg] 20 mg PO UD #18 tablet Metronidazole 500 mg [Flagyl 500 MG] 500 mg PO QID #28 tablet Hydrocodone Bit/Acetaminophen [Hydrocodon-Acetaminophen 5-325] 1 each PO QID PRN #20 tablet PRN Reason: Pain Levofloxacin [Levofloxacin 500 MG Tablet] 500 mg PO DAILY #5 tablet Continue Ropinirole HCl [Requip] 1 mg PO BID Ranitidine HCl [Zantac] 300 mg PO UD PRN PRN Reason: Acid Reflux Albuterol 8 gm Mdi Hfa [Ventolin Hfa MDI] 2 puff IH QID PRN PRN PRN Reason: Shortness Of Breath/Wheezing Venlafaxine HCl [Effexor] 150 mg PO DAILY Benzonatate [Tessalon Perle] 100 mg PO TID PRN PRN Reason: Cough Albuterol 2.5 mg/3 ml Neb [Proventil 2.5 mg/3 ml Neb] 2.5 mg IH Q4H PRN PRN PRN Reason: Shortness Of Breath/Wheezing Fluticasone/Salmeterol Disc [Advair 250-50 Diskus 14 Dose] 1 each IH BID Discontinued Promethazine HCl 25 mg [Phenergan 25 mg] 25 mg PO Q4H PRN PRN PRN Reason: Nausea Follow up with: BARON BARRIGA [Primary Care Provider] - 03/02/17 2:30 pm Forms: Patient Portal Information
== END 2017-02-20 11:05 | disposition home or self-care (01) ==
LOC: ED 21:53 → MED SURG 02-18 01:54
PROVIDERS: ADMIT Internal Medicine; ATTEND Internal Medicine
DX: K52.9 Noninfective gastroenteritis and colitis, unspecified (principal); J44.9 Chronic obstructive pulmonary disease, unspecified; M54.5 Low back pain; G25.81 Restless legs syndrome; G89.29 Other chronic pain; F45.42 Pain disorder with related psychological factors; Z79.899 Other long term (current) drug therapy
CPT/HCPCS: 36000; 36415; 74176; 80048; 80053; 81002; 82150; 83690; 83735; 84703; 85025; 87040; 87045; 87046; 87177; 87209; 87335; 87493; 93268; 94640; 94760; 96360; 96374; 96375; 99285; G0378; J1170; J1956; J2405; J2550; J2930; A9270-GY

== ENCOUNTER 2017-02-23 17:19 | Emergency (ER) | payer OTHER ==
--- NOTE | 2017-02-23 17:52 | ERPHSYRPT ---
- History of Present Illness Time Seen by Provider: 02/23/17 17:45 Historian: patient Exam Limitations: no limitations Patient Subjective Stated Complaint: pt has recent hx of ulcerative colitis and states she thinks she is having a flare up, pain to left lower abd , no fever, nausea not vomiting Triage Nursing Assessment: pt alert, resp easy, skin w/d. pink, walked in, abd soft Physician History: The patient is a 46-year-old female complaining of left-sided abdominal pain without diarrhea. Earlier in the month of January she was seen at [facility] for worsening abdominal pain. She states that at [facility] ER she was given a diagnosis of colitis and was placed on Levaquin and Flagyl that she is finished. On February 05 she saw Azam Caldwell for continued abdominal pain and was given a Medrol dose pack. She was also taking Greenway that was left over from [facility]. She began having soft stools every 20 minutes for 2 days with worsening abdominal pain. She was hospitalized at [facility] by Dr. Barriga on February 18 for abdominal pain. The CT scan of her abdomen showed mild pericolonic fat stranding consistent with colitis. She was placed on Flagyl and Levaquin once again. This detailed history comes from the history and physical report of Dr. Barriga when she was admitted on February 18. The patient was to have a colonoscopy at some point in the future. Also in the plan she was requesting Dilaudid for pain medicine the Dr. Barriga denied having the Dilaudid increased at the request of the patient. A direct quote from the assessment and plan is "in the past are office has not been able to give her controlled medication because she failed a urine tox screen with pain management clinic here at [facility]". Today the patient is somewhat evasive in her answers. She denies any diarrhea for the past few days. She states she thinks she has ulcerative colitis based upon the CT scan. She has been taking Greenway 5/325 without relief. She tells me that Dilaudid helps her. Timing/Duration: day(s) Activities at Onset: none Quality: sharpness Abdominal Pain Onset Location: LUQ, LLQ Pain Radiation: no radiation Severity of Pain-Max: moderate Severity of Pain-Current: moderate Modifying Factors: Improves With: analgesics Associated Symptoms: loss of appetite, nausea Previous symptoms: same symptoms as today Allergies/Adverse Reactions: atropine sulfate [From ] Allergy (Verified 02/23/17 17:37) hyoscyamine sulfate [From ] Allergy (Verified 02/23/17 17:37) phenobarbital [From ] Allergy (Verified 02/23/17 17:37) scopolamine hydrobromide [From ] Allergy (Verified 02/23/17 17:37) shellfish derived Allergy (Verified 02/23/17 17:37) sulfamethoxazole [From Bactrim] Allergy (Verified 02/23/17 17:37) sumatriptan [From Imitrex] Allergy (Verified 02/23/17 17:37) sumatriptan succinate [From Imitrex] Allergy (Verified 02/23/17 17:37) trimethoprim [From Bactrim] Allergy (Verified 02/23/17 17:37) Home Medications: Albuterol 8 gm Mdi Hfa [Ventolin Hfa MDI] 2 puff IH QID PRN PRN 06/11/16 [ History] Ranitidine HCl [Zantac] 300 mg PO UD PRN 06/11/16 [History] Ropinirole HCl [Requip] 1 mg PO BID 06/11/16 [History] Venlafaxine HCl [Effexor] 150 mg PO DAILY 01/21/17 [History] Albuterol 2.5 mg/3 ml Neb [Proventil 2.5 mg/3 ml Neb] 2.5 mg IH Q4H PRN PRN 02/18/17 [History] Benzonatate [Tessalon Perle] 100 mg PO TID PRN 02/18/17 [History] Fluticasone/Salmeterol Disc [Advair 250-50 Diskus 14 Dose] 1 each IH BID 02/18/17 [History] Hx Tetanus, Diphtheria Vaccination/Date Given: Yes Hx Influenza Vaccination/Date Given: No Hx Pneumococcal Vaccination/Date Given: Yes Immunizations Up to Date: Yes - Review of Systems Constitutional: No Fever, No Chills Eyes: No Symptoms Ears, Nose, & Throat: No Symptoms Respiratory: No Cough, No Dyspnea Cardiac: No Chest Pain, No Edema, No Syncope Abdominal/Gastrointestinal: Abdominal Pain, Nausea, No Vomiting, No Diarrhea Genitourinary Symptoms: No Dysuria Musculoskeletal: No Back Pain, No Neck Pain Skin: No Rash Neurological: No Dizziness, No Focal Weakness, No Sensory Changes Psychological: No Symptoms Endocrine: No Symptoms Hematologic/Lymphatic: No Symptoms Immunological/Allergic: No Symptoms All Other Systems: Reviewed and Negative - Past Medical History Pertinent Past Medical History: Yes Neurological History: Migraines, Other ENT History: No Pertinent History Cardiac History: High Cholesterol, Other Respiratory History: Asthma, COPD Endocrine Medical History: No Pertinent History Musculoskeletal History: Degenerative Disk Disease, Osteoporosis, Other History: Other Psycho-Social History: Bipolar, Depression Female Reproductive Disorders: Other Other Medical History: , shingles 01/2016, neurosyncope, hysterectomy. Restless Leg syndrome. - Past Surgical History Past Surgical History: Yes Neuro Surgical History: Other Cardiac: No Pertinent History Respiratory: No Pertinent History Gastrointestinal: No Pertinent History Genitourinary: Other Musculoskeletal: Other Female Surgical History: Hysterectomy, Tubal Ligation Other Surgical History: 2 NOSE SURG,KNEE SURG, back stimulator, bladder stimulator for neurogenic bladder and removal of both. Brochoscopy. - Social History Smoking Status: Current every day smoker How long have you smoked: 25 Exposure to second hand smoke: Yes Drug Use: none Patient Lives Alone: No - Female History Hx Last Menstrual Period: hyster - Nursing Vital Signs Nursing Vital Signs: Initial Vital Signs Temperature 98.9 F 02/23/17 17:31 Pulse Rate 113 H 02/23/17 17:31 Respiratory Rate 16 02/23/17 17:31 Blood Pressure 127/96 02/23/17 17:31 O2 Sat by Pulse Oximetry 95 02/23/17 17:31 Pain Scale Pain Intensity 8 - Physical Exam General Appearance: no apparent distress, alert Eye Exam: PERRL/EOMI, eyes nml inspection Ears, Nose, Throat Exam: normal ENT inspection, pharynx normal, moist mucous membranes Neck Exam: normal inspection, non-tender, supple, full range of motion Respiratory Exam: normal breath sounds, lungs clear, No respiratory distress Cardiovascular Exam: regular rate/rhythm, normal heart sounds Gastrointestinal/Abdomen Exam: tenderness (mild tenderness to left abd) Pelvic Exam: not done Rectal Exam: not done Back Exam: normal inspection, normal range of motion, No CVA tenderness, No vertebral tenderness Extremity Exam: normal inspection, normal range of motion, pelvis stable Neurologic Exam: alert, oriented x 3, cooperative, normal mood/affect, nml cerebellar function, sensation nml, No motor deficits Skin Exam: normal color, warm, dry SpO2 Interpretation: normal SpO2: 95 Oxygen Delivery: Room Air - Radiology Exams Abdomen X-ray Interpretation: Interpreted by me, Other (increased colonic fecal load.) Ordered Tests: Active Orders 24 hr Category Date Time Status IV Insertion STAT Care 02/23/17 18:12 Active OBSTR/ACUTE ABDOMEN SERIES Stat Exams 02/23/17 18:15 Ordered AMYLASE Stat Lab 02/23/17 18:31 Completed CBC W DIFF Stat Lab 02/23/17 18:31 Completed CMP Stat Lab 02/23/17 18:31 Completed LIPASE Stat Lab 02/23/17 18:31 Completed Lactic Acid Stat Lab 02/23/17 18:25 Results UA W/RFX UR CULTURE Stat Lab 02/23/17 18:31 Completed Urine Triage Profile Stat Lab 02/23/17 18:31 Completed Medication Summary Generic Name Dose Route Start Last Admin Trade Name Freq PRN Reason Stop Dose Admin Sodium Chloride 1,000 mls @ 999 mls/hr 02/23/17 18:12 02/23/17 18:22 Sodium Chloride 0.9% 1000 Ml IV 02/23/17 19:12 999 mls/hr .Q1H1M STA Administration Discontinued Medications Generic Name Dose Route Start Last Admin Trade Name Freq PRN Reason Stop Dose Admin Acetaminophen 975 mg 02/23/17 18:12 02/23/17 18:21 Tylenol 325 Mg PO 02/23/17 18:13 975 mg STAT ONE Administration Acetaminophen Confirm 02/23/17 18:20 Tylenol 325 Mg Administered 02/23/17 18:21 Dose 975 mg .ROUTE .STK-MED ONE Sodium Chloride Confirm 02/23/17 18:20 Sodium Chloride 0.9% 1000 Ml Administered 02/23/17 18:21 Dose 1,000 mls @ ud .ROUTE .STK-MED ONE Ondansetron HCl 4 mg 02/23/17 18:12 02/23/17 18:22 Zofran 4 Mg/2 Ml Vial IV 02/23/17 18:13 4 mg STAT ONE Administration Ondansetron HCl Confirm 02/23/17 18:19 Zofran 4 Mg/2 Ml Vial Administered 02/23/17 18:20 Dose 4 mg .ROUTE .STK-MED ONE Lab/Rad Data: Laboratory Result Diagrams 02/23/17 18:31 02/23/17 18:31 Laboratory Results 02/23/17 02/23/17 02/23/17 Range/Units 18:31 18:31 18:31 WBC 11.0 H (4.0-10.5) K/mm3 RBC 4.05 L (4.1-5.4) M/mm3 Hgb 12.6 (12.0-16.0) gm/dl Hct 39.4 (35-47) % MCV 97.3 (78-100) fl MCH 31.1 (26-32) pg MCHC 32.0 (32-36) g/dl RDW 14.4 H (11.5-14.0) % Plt Count 256 (150-450) K/mm3 MPV 10.4 H (6-9.5) fl Gran % 47.9 (36.0-66.0) % Lymphocytes % 40.5 (24.0-44.0) % Monocytes % 8.7 (0.0-12.0) % Eosinophils % 2.8 (0.00-5.0) % Basophils % 0.1 (0.0-0.4) % Basophils # 0.01 (0-0.4) Sodium 146 H (136-145) mEq/L Potassium 4.4 (3.5-5.1) mEq/L Chloride 109 H (98-107) mEq/L Carbon Dioxide 29.1 (21-32) mEq/L Anion Gap 12.2 (5-15) MEQ/L BUN 10 (9-20) mg/dL Creatinine 1.02 (0.55-1.30) mg/dl Estimated GFR > 60 ML/MIN Glucose 96 (70-110) MG/DL Lactic Acid (0.4-2.0) Calcium 8.7 (8.5-10.1) mg/dL Total Bilirubin 0.20 (0.2-1.0) mg/dL AST 22 (15-37) U/L ALT 18 (12-78) U/L Alkaline Phosphatase 99 (46-116) U/L Serum Total Protein 6.4 (6.4-8.2) gm/dL Albumin 2.9 L (3.4-5.0) g/dL Amylase 49 (25-115) U/L Lipase 201 (73-393) U/L Ur Collection Type Urine Color (YELLOW) Urine Appearance (CLEAR) Urine pH (5-6) Ur Specific [place] (1.005-1.025) Urine Protein (Negative) Urine Ketones (NEGATIVE) Urine Blood (0-5) Ricardo/ul Urine Nitrite (NEGATIVE) Urine Bilirubin (NEGATIVE) Urine Urobilinogen (0-1) mg/dL Ur Leukocyte Esterase (NEGATIVE) Urine Glucose (NEGATIVE) mg/dL Urine Opiates Level POS. (NEGATIVE) Ur Methadone NEG. (NEGATIVE) Urine Barbiturates NEG. (NEGATIVE) Ur Phencyclidine (PCP) NEG. (NEGATIVE) Urine Amphetamine NEG. (NEGATIVE) U Benzodiazepine Level NEG. (NEGATIVE) Urine Cocaine NEG. (NEGATIVE) Urine Marijuana (THC) POS. (NEGATIVE) Specimen Received 02/23/17 02/23/17 Range/Units 18:31 18:25 WBC (4.0-10.5) K/mm3 RBC (4.1-5.4) M/mm3 Hgb (12.0-16.0) gm/dl Hct (35-47) % MCV (78-100) fl MCH (26-32) pg MCHC (32-36) g/dl RDW (11.5-14.0) % Plt Count (150-450) K/mm3 MPV (6-9.5) fl Gran % (36.0-66.0) % Lymphocytes % (24.0-44.0) % Monocytes % (0.0-12.0) % Eosinophils % (0.00-5.0) % Basophils % (0.0-0.4) % Basophils # (0-0.4) Sodium (136-145) mEq/L Potassium (3.5-5.1) mEq/L Chloride (98-107) mEq/L Carbon Dioxide (21-32) mEq/L Anion Gap (5-15) MEQ/L BUN (9-20) mg/dL Creatinine (0.55-1.30) mg/dl Estimated GFR ML/MIN Glucose (70-110) MG/DL Lactic Acid 2.5 H (0.4-2.0) Calcium (8.5-10.1) mg/dL Total Bilirubin (0.2-1.0) mg/dL AST (15-37) U/L ALT (12-78) U/L Alkaline Phosphatase (46-116) U/L Serum Total Protein (6.4-8.2) gm/dL Albumin (3.4-5.0) g/dL Amylase (25-115) U/L Lipase (73-393) U/L Ur Collection Type CLEAN CATCH Urine Color YELLOW (YELLOW) Urine Appearance CLEAR (CLEAR) Urine pH 6.5 (5-6) Ur Specific [place] 1.020 (1.005-1.025) Urine Protein NEGATIVE (Negative) Urine Ketones NEGATIVE (NEGATIVE) Urine Blood NEGATIVE (0-5) Ricardo/ul Urine Nitrite NEGATIVE (NEGATIVE) Urine Bilirubin NEGATIVE (NEGATIVE) Urine Urobilinogen NORMAL (0-1) mg/dL Ur Leukocyte Esterase NEGATIVE (NEGATIVE) Urine Glucose NEGATIVE (NEGATIVE) mg/dL Urine Opiates Level (NEGATIVE) Ur Methadone (NEGATIVE) Urine Barbiturates (NEGATIVE) Ur Phencyclidine (PCP) (NEGATIVE) Urine Amphetamine (NEGATIVE) U Benzodiazepine Level (NEGATIVE) Urine Cocaine (NEGATIVE) Urine Marijuana (THC) (NEGATIVE) Specimen Received 02/23/17 1830 - Progress Progress: improved Counseled pt/family regarding: lab results, diagnosis, rad results - Departure Time of Disposition: 19:01 Departure Disposition: Home Clinical Impression: Constipation Condition: Stable Critical Care Time: No Referrals: BARON BARRIGA [Primary Care Provider] - Additional Instructions: Your abdominal pain is caused by constipation throughout your entire colon. You were given Tylenol 975 mg in the ER. You're also given IV fluids. Take one bottle of [id number] magnesium citrate to get her bowels moving. Follow up tomorrow as scheduled with Dr. Barriga.
[2017-02-23] MEDS ORDERED: Sodium Chloride 0.9% 1000 ML 1,000 ML IV STA (18:12)
[2017-02-23] MEDS ORDERED: TYLENOL 325 MG PO ONE (18:12)
[2017-02-23] MEDS ORDERED: Zofran 4 MG/2 ML VIAL IV ONE (18:12)
[2017-02-23] MEDS ORDERED: Zofran 4 MG/2 ML VIAL ONE (18:19)
[2017-02-23] MEDS ORDERED: TYLENOL 325 MG ONE (18:20)
[2017-02-23] MEDS ORDERED: Sodium Chloride 0.9% 1000 ML 1,000 ML ONE (18:20)
[2017-02-23 18:35] LABS: BASOPHIL % 0.1 % (0.0-0.4); Eosinophil % 2.8 % (0.00-5.0); Granulocytes % 47.9 % (36.0-66.0); Lymphocytes % 40.5 % (24.0-44.0); Mean Cell Volume 97.3 fl (78-100); Mean Corpuscular Hemoglobin 31.1 pg (26-32); Mean Platelet Volume 10.4 fl (6-9.5); Monocytes % 8.7 % (0.0-12.0); Platelet Count 256 K/mm3 (150-450); Red Blood Count 4.05 M/mm3 (4.1-5.4); Red Cell Distribution Width 14.4 % (11.5-14.0)
[2017-02-23 18:38] LABS: Lactic Acid 2.5 (0.4-2.0)
[2017-02-23 18:50] LABS: ADD URINE CULTURE? NO (NO); Bilirubin NEGATIVE (NEGATIVE); Blood NEGATIVE Ery/ul (0-5); COMPLETE URINE MICROSCOPIC? NO; Collection Type CLEAN CATCH; Glucose NEGATIVE (NEGATIVE); Leukocyte Esterase NEGATIVE (NEGATIVE)
[2017-02-23 18:52] LABS: ALBUMIN 2.9 g/dL (3.4-5.0); ALKALINE PHOSPHATASE 99 U/L (46-116); ANION GAP 12.2 MEQ/L (5-15); BLOOD UREA NITROGEN 10 mg/dL (9-20); CHLORIDE 109 mEq/L (98-107); Carbon Dioxide 29.1 mEq/L (21-32); Glucose 96 MG/DL (70-110); LIPASE 201 U/L (73-393); Potassium 4.4 mEq/L (3.5-5.1); SGOT/AST 22 U/L (15-37); SGPT/ALT 18 U/L (12-78); SODIUM 146 mEq/L (136-145); Total Protein 6.4 gm/dL (6.4-8.2)
[2017-02-23 19:04] VITALS: BP 126/78; PULSE 93; O2SAT 95
--- NOTE | 2017-02-24 08:51 | XRAY ---
Indication: Abdominal pain for 1 month. Comparison: Chest exam January 21, 2017. 2 views of the abdomen nonacute and nonobstructed with mild diffuse scattered colonic fecal debris. Solid organs unremarkable. Osseous structures intact with minimal levoscoliosis. Single PA chest again demonstrates normal heart, lungs, and bony thorax. Impression: 1. Mild fecal stasis without obstruction. 2. Stable normal 1 view chest.
== END 2017-02-23 19:33 | disposition home or self-care (01) ==
LOC: ED 17:19
DX: K59.00 Constipation, unspecified (principal); R10.9 Unspecified abdominal pain; Z79.899 Other long term (current) drug therapy; E78.00 Pure hypercholesterolemia, unspecified; J44.9 Chronic obstructive pulmonary disease, unspecified
CPT/HCPCS: 36000; 36415; 74022; 80053; 80307; 81002; 82150; 83605; 83690; 85025; 96374; 99284; J2405; A9270-GY

== ENCOUNTER 2020-11-19 23:03 | Emergency (ER) | payer OTHER ==
--- NOTE | 2020-11-19 23:13 | ERPHSYRPT ---
- History of Present Illness Time Seen by Provider: 11/19/20 23:13 Source: patient, family Exam Limitations: no limitations Physician History: This is a 49-year-old white female who noticed swelling in her left lower leg yesterday. She has no history of deep venous thromboses or pulmonary emboli in the past. She is not on any anticoagulant therapy. She has no history of bleeding or clotting disorders. She does have a significant smoking history. She has a history of migraines, elevated cholesterol, asthma, COPD bipolar disorder and depression. Patient stayed off her feet and elevate of the left lower extremity and today swelling has improved but is still present. She has no specific new shortness of breath or chest pain issues. She is concerned about a deep venous thrombosis in the left lower extremity. Method of Injury: other (No injury) Occurred: yesterday Quality: aching (Left lower leg) Severity of Pain-Max: mild Severity of Pain-Current: mild Lower Extremities Pain: leg: left (Left lower leg mild) Modifying Factors: Improves With: other (Elevation improved) Allergies/Adverse Reactions: atropine sulfate [From ] Allergy (Verified 11/19/20 23:25) hyoscyamine sulfate [From ] Allergy (Verified 11/19/20 23:25) phenobarbital [From ] Allergy (Verified 11/19/20 23:25) scopolamine hydrobromide [From ] Allergy (Verified 11/19/20 23:25) shellfish derived Allergy (Verified 11/19/20 23:25) sulfamethoxazole [From Bactrim] Allergy (Verified 11/19/20 23:25) sumatriptan [From Imitrex] Allergy (Verified 11/19/20 23:25) sumatriptan succinate [From Imitrex] Allergy (Verified 11/19/20 23:25) trimethoprim [From Bactrim] Allergy (Verified 11/19/20 23:25) Home Medications: Albuterol 8 gm Mdi Hfa [Ventolin Hfa MDI] 2 puff IH QID PRN PRN 06/11/16 [History] Albuterol 2.5 mg/3 ml Neb [Proventil 2.5 mg/3 ml Neb] 2.5 mg IH Q4H PRN PRN 02/18/17 [History] Umeclidinium [place] [Incruse Ellipta] 1 puff IH DAILY 11/19/20 [History] Hx Tetanus, Diphtheria Vaccination/Date Given: Yes Hx Influenza Vaccination/Date Given: No Hx Pneumococcal Vaccination/Date Given: Yes Travel Risk - International Travel Have you traveled outside of the country in past 3 weeks: No - Coronavirus Screening Are you exhibiting any of the following symptoms?: No Close contact with a COVID-19 positive Pt in past 14-21 Days: No - Review of Systems Constitutional: No Symptoms Eyes: No Symptoms Ears, Nose, & Throat: No Symptoms Respiratory: No Symptoms Cardiac: No Symptoms Abdominal/Gastrointestinal: No Symptoms Genitourinary Symptoms: No Symptoms Musculoskeletal: Other (Left lower extremity swelling) Skin: No Symptoms Neurological: No Symptoms Psychological: No Symptoms Endocrine: No Symptoms Hematologic/Lymphatic: No Symptoms Immunological/Allergic: No Symptoms All Other Systems: Reviewed and Negative - Past Medical History Pertinent Past Medical History: Yes Neurological History: Migraines, Other ENT History: No Pertinent History Cardiac History: High Cholesterol, Other Respiratory History: Asthma, COPD Endocrine Medical History: No Pertinent History Musculoskeletal History: Degenerative Disk Disease, Osteoporosis, Other History: Other Psycho-Social History: Bipolar, Depression Female Reproductive Disorders: Other Other Medical History: , shingles 01/2016, neurosyncope, hysterectomy. Restless Leg syndrome. - Past Surgical History Past Surgical History: Yes Neuro Surgical History: Other Cardiac: No Pertinent History Respiratory: No Pertinent History Gastrointestinal: No Pertinent History Genitourinary: Other Musculoskeletal: Other Female Surgical History: Hysterectomy, Tubal Ligation Other Surgical History: 2 NOSE SURG,KNEE SURG, back stimulator, bladder stimulator for neurogenic bladder and removal of both. Brochoscopy. - Social History Smoking Status: Current every day smoker How long have you smoked: 25 Exposure to second hand smoke: Yes Drug Use: none Patient Lives Alone: No - Nursing Vital Signs Nursing Vital Signs: Initial Vital Signs Temperature 98.0 F 11/19/20 23:10 Pulse Rate 107 H 11/19/20 23:10 Respiratory Rate 20 11/19/20 23:10 Blood Pressure 140/95 11/19/20 23:10 O2 Sat by Pulse Oximetry 98 11/19/20 23:10 Pain Scale Pain Intensity 0 - Physical Exam General Appearance: no apparent distress, alert, anxiety Eyes, Ears, Nose, Throat Exam: normal ENT inspection, moist mucous membranes Neck Exam: normal inspection, non-tender, supple, full range of motion Cardiovascular/Respiratory Exam: chest non-tender, normal breath sounds, regular rate/rhythm, heart sounds normal, no ecchymosis, no JVD, no M/R/G, no respiratory distress Gastrointestinal/Abdominal Exam: non-tender, soft Back Exam: normal inspection, normal range of motion, No CVA tenderness, No vertebral tenderness Hips Exam: bilateral: non-tender, normal inspection, normal range of motion, no evidence of injury Legs Exam: right leg: normal inspection, left leg: swelling, bilateral leg: non- tender, normal range of motion, no evidence of injury Knees Exam: bilateral knee: non-tender, normal inspection, normal range of motion, no evidence of injury Ankle Exam: right ankle: normal inspection, left ankle: swelling, bilateral ankle: non-tender, normal range of motion, no evidence of injury Foot Exam: bilateral foot: non-tender, normal inspection, normal range of motion, no evidence of injury Neuro/Tendon Exam: normal sensation, normal motor functions, normal tendon functions Mental Status Exam: alert, oriented x 3, cooperative Skin Exam: normal color, warm, dry SpO2 Interpretation: normal SpO2: 98 O2 Delivery: Room Air - Course Nursing assessment & vital signs reviewed: Yes Ordered Tests: Medication Summary Discontinued Medications Generic Name Dose Route Start Last Admin Trade Name Freq PRN Reason Stop Dose Admin Enoxaparin Sodium 80 mg 11/19/20 23:29 11/19/20 23:32 Enoxaparin Sodium SQ 11/19/20 23:30 80 mg STAT ONE Administration Enoxaparin Sodium Confirm 11/19/20 23:32 Enoxaparin Sodium Administered 11/19/20 23:33 Dose 80 mg SQ .STK-MED ONE - Progress Progress: unchanged Progress Note: 11/19/20 23:44 Medical decision making: This patient has new left lower extremity swelling that has improved in 24 hours with elevation of her left lower extremity. There is some mild aching is present. There is still swelling visible. The patient has no bleeding or clotting disorders. She has no new shortness of breath or chest pain. Oxygen saturation and heart rate are within normal limits. Even if her D-dimer is normal I would still be ordering a venous Doppler in this patient. Therefore, I will send the patient home after Lovenox 80 mg subcutaneous injection. Venous Doppler of her left lower extremity has been scheduled for 9:30 in the morning on 11/20/2020. Counseled pt/family regarding: diagnosis, need for follow-up - Departure Departure Disposition: Home Clinical Impression: Swelling of left lower extremity Condition: Stable Critical Care Time: No Referrals: COLE GREEN NP [Primary Care Provider] - Additional Instructions: Keep left lower extremity elevated above level of your heart. Arrive at the registration desk at 9 AM tomorrow morning, 11/20/2020 for your left lower leg venous Doppler that is scheduled at 9:30 in the morning. Be aware that you are being worked and that that is an estimated time frame. Call your primary care doctor for your results after you have your venous Doppler completed.
[2020-11-19] MEDS ORDERED: ENOXAPARIN SODIUM SQ ONE ×2 (23:29→23:32)
[2020-11-19 23:57] VITALS: BP 109/90; PULSE 97; O2SAT 99
== END 2020-11-19 23:57 | disposition home or self-care (01) ==
LOC: ED 23:03
DX: M79.89 Other specified soft tissue disorders (principal)
CPT/HCPCS: 96372; 99283; J1650